=== PATIENT | female | born 1960 | race Caucasian/White ===

== ENCOUNTER 2016-05-22 11:42 | Emergency (ER) | payer OTHER ==
[2016-05-22 12:51] LABS: BASO # 0.1 K/mm3 (0.0-0.2); BASO % 2.4 % (0.0-1.0); EOS # 0.1 K/mm3 (0.0-0.50); EOS % 2.3 % (0.0-3.0); LARGE UNSTAINED CELL # 0.1 K/mm3 (0.0-0.4); LARGE UNSTAINED CELL % 1.2 % (0.0-4.0); LYMPH # 1.4 K/mm3 (1.5-4.5); LYMPH % 26.5 % (24.0-44.0); MEAN CORPUSCULAR HEMOGLOBIN 31.1 pg (27.0-33.0); MEAN CORPUSCULAR HGB CONC 33.8 g/dl (32.0-36.5); MONO # 0.1 K/mm3 (0.0-0.8); MONO % 2.8 % (0.0-5.0); NEUTROPHILS # 3.4 K/mm3 (1.8-7.7); NEUTROPHILS % 64.9 % (36.0-66.0); PLATELET COUNT, AUTOMATED 219 k/mm3 (150-450); RED CELL DISTRIBUTION WIDTH 12.9 % (11.5-14.5); WHITE BLOOD COUNT 5.2 K/mm3 (4.0-10.0)
[2016-05-22 13:10] LABS: ANION GAP 8 MEQ/L (8-16); BLOOD UREA NITROGEN 13 MG/DL (7-18); CARBON DIOXIDE LEVEL 31 MEQ/L (21-32); CHLORIDE LEVEL 105 MEQ/L (98-107); CREATININE FOR GFR 0.71 MG/DL (0.55-1.02); GLOMERULAR FILTRATION RATE > 60.0 (>51); GLUCOSE, FASTING 103 MG/DL (70-105); POTASSIUM SERUM 3.7 MEQ/L (3.5-5.1); SODIUM LEVEL 144 MEQ/L (136-145)
--- NOTE | 2016-05-22 13:41 | EDDOCDS ---
Physician Documentation [facility] Name: Lesley Nolen Age: 55 yrs Sex: Female : 1960 Arrival Date: 05/22/2016 Time: 11:42 Bed I3 / M3 Private MD: Gagan Cortez M.D. Disposition: 05/22/16 13:28 Discharged to Home/Self Care. Impression: Cough, Acute bronchospasm. - Condition is Stable. - Discharge Instructions: Bronchospasm, Adult, Cough, Adult, [id number]. - Prescriptions for Prednisone 20 mg Oral Tablet - take 2 tablet by ORAL route once daily for 5 days; 10 tablet. benzonatate 200 mg Oral Capsule - take 1 capsule by ORAL route 3 times per day As needed; 30 capsule. - Medication Reconciliation, Local Pharmacy Hours form. - Follow up: Emergency Department; When: As needed; Reason: Worsening of conditions. Follow up: Private Physician; When: 2 - 3 days; Reason: Wound/Symptom Recheck, Recheck today's complaints, Continuance of care. - Problem is new. - Symptoms are unchanged. Historical: - Allergies: Septra; - Home Meds: 1. pro air inhaler as needed 2. multivitamin Oral tab daily 3. calcium magnesium and zinc daily 4. Vitamin D Oral daily - PMHx: none; - PSHx: Appendectomy; Tonsillectomy; Adenoidectomy; Colonoscopy; - Social history: Smoking status: Patient states was never smoker of tobacco. No barriers to communication noted, The patient speaks fluent Turkmen, Speaks appropriately for age. - Family history: No immediate family members are acutely ill. - : The pt / caregiver states he / she is not on anticoagulants. Home medication list is obtained from the patient. - Exposure Risk Screening:: None identified. 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 5 in. (165.10 cm) (R); Pain 0/10; 12:32 BP 173 / 77 LA Sitting (man/reg); ct3 12:32 BP 179 / 87 LA Sitting (man/reg); ct3 13:39 BP 131 / 72; Pulse 76; Resp 17; Temp 98.2(TE); Pulse Ox 98% on R/A; mb9 11:43 Body Mass Index 26.63 (72.57 kg, 165.10 cm) elp MDM: 12:20 Recheck B/P ordered. dt4 12:20 IV Saline Lock ordered. dt4 12:20 ECG WITH READING ER PHYS+CARDIAG ordered. EDMS 12:20 CBC with Diff Ordered. EDMS 12:20 Basic Metabolic Profile Ordered. EDMS 12:20 D-Dimer Quant Ordered. EDMS 12:30 ED course: PT STATES BEGAN WITH A COUGH, RUNNY NOSE AND GENERAL "NOT FEELING WELL" IN dt4 MARCH. WAS PLACED ON ANTIBIOTICS AND STATES EVERYTHING RESOLVED EXCEPT THE COUGH. STATES TODAY, HAD 2 EPISODES WHERE SHE WAS COUGHING AND COULD NOT CATCH HER BREATH. WENT TO URGENT CARE AND THEY ASKED IF SHE HAD ANY CALF PAIN AND PT STATED SHE HAD A COUPLE EPISODES OF CALF PAIN LAST WEEK AND THEY SENT HER TO THE ER TO RULE OUT A PE. PT STATES HAS NO CALF PAIN CURRENTLY, NO RECENT LONG TRAVEL, NO HRT, NONSMOKER. POS FAMILY HISTORY FOR CVA, CAD, AN ANEURYSM. . 12:46 CARDIAC INJURY PROFILE Ordered. EDMS 12:46 TROPONIN Ordered. EDMS Signatures: Dispatcher [employer] EDLainey Greco,RN RN kr3 Eleni Donald, PAPaulC PAPaulC dt4 Ronaldo CruzRN RN mb9 The chart was reviewed and I authenticate all verbal orders and agree with the evaluation and treatment provided.Corrections: (The following items were deleted from the chart) 12:46 12:33 TROPONIN+LAB ordered. EDMS EDMS 12:46 12:33 CARDIAC INJURY PROFILE+LAB ordered. EDMS EDMS MTDD
--- NOTE | 2016-05-22 13:41 | EDDOCDS ---
Nurse's Notes [facility] Name: Lesley Nolen Age: 55 yrs Sex: Female : 1960 Arrival Date: 05/22/2016 Time: 11:42 Bed I3 / M3 Private MD: Gagan Cortez M.D. Diagnosis: Cough;Acute bronchospasm Presentation: 05/22 11:46 Presenting complaint: Patient states: had shortness of breath today with cough since kr3 March. Had antibiotics in March but cough continued. Uses inhaler. Sent to Ed to rule out PE. Adult Sepsis Screening: The patient does not have new or worsening altered mentation. Patient's respiratory rate is less than 22. Systolic blood pressure is greater than 100. Patient has a qSOFA score of 0- Negative Sepsis Screen. Suicide/Homicide risk assessment- the patient denies having any suicidal and/or homicidal ideations and does not present with any other emotional, behavioral or mental health complaints. Status: Patient is not a representative phlebotomy services or dependent. Transition of care: Patient was received from [facility]. 11:46 Acuity: DEVIN Level 3 kr3 11:46 Method Of Arrival: Walkin/Carried/Asstd kr3 Triage Assessment: 11:49 General: Appears in no apparent distress, comfortable, Behavior is cooperative. kr3 General: Reports anxiety since being seen at . Pain: Location: chest Pain currently is 3 out of 10 on a pain scale. Quality of pain is described as pressure, Pain began 30 min ago. Pt Declines HIV testing. Respiratory: Respiratory effort is even, unlabored, Reports cough that is productive, persistent. Derm: Skin is normal. CLINICAL DOCUMENTATION SPEC: 11:49 LMP N/A - Post-menopause kr3 Historical: - Allergies: Septra; - Home Meds: 1. pro air inhaler as needed 2. multivitamin Oral tab daily 3. calcium magnesium and zinc daily 4. Vitamin D Oral daily - PMHx: none; - PSHx: Appendectomy; Tonsillectomy; Adenoidectomy; Colonoscopy; - Social history: Smoking status: Patient states was never smoker of tobacco. No barriers to communication noted, The patient speaks fluent Belgian, Speaks appropriately for age. - Family history: No immediate family members are acutely ill. - : The pt / caregiver states he / she is not on anticoagulants. Home medication list is obtained from the patient. - Exposure Risk Screening:: None identified. Screenin:42 Screening information is obtained from the patient. Fall risk: No risks identified. mb9 Assistance ADL's: requires no assistance with activities of daily living. Abuse/DV Screen: The patient / caregiver reports he/she is: not in a situation that causes fear, pain or injury. Nutritional screening: No deficits noted. Advance Directives: There is no active DNR order. home support is adequate. Assessment: 12:42 General: Appears in no apparent distress, Behavior is appropriate for age, cooperative. mb9 Pain: Denies pain. Cardiovascular: No deficits noted. Respiratory: Airway is patent Respiratory effort is even, unlabored, Breath sounds are clear bilaterally. Reports cough that is non-productive, dry. 13:39 Reassessment: Patient appears in no apparent distress at this time. General: Appears in mb9 no apparent distress, Behavior is appropriate for age, cooperative. Respiratory: Airway is patent Respiratory effort is even, unlabored. Vital Signs: 11:43 BP 191 / 94; Pulse 105; Resp 20; Temp 98.2(O); Pulse Ox 100% on R/A; Weight 72.57 kg elp (R); Height 5 ft. 5 in. (165.10 cm) (R); Pain 0/10; 12:32 BP 173 / 77 LA Sitting (man/reg); ct3 12:32 BP 179 / 87 LA Sitting (man/reg); ct3 13:39 BP 131 / 72; Pulse 76; Resp 17; Temp 98.2(TE); Pulse Ox 98% on R/A; mb9 11:43 Body Mass Index 26.63 (72.57 kg, 165.10 cm) [facility] Vitals: 11:43 Log In Time: May 22, 2016 at 11:41. [facility] ED Course: 11:43 Patient visited by Loren Nevarez PCA. elp 11:43 Gagan Cortez is Private Physician. elp 11:43 Patient moved to Waiting elp 11:44 Patient visited by Loren Nevarez PCA. elp 11:45 Patient moved to Pre RCE elp 11:47 Triage Initiated kr3 11:59 Patient moved to Triage 1 js13 12:01 Eleni Donald PA-C is PHCP. dt4 12:01 Patrick Roper MD is Attending Physician. dt4 12:01 Patient visited by Eleni Donald PA-C. dt4 12:19 Mitra Johnston, RN is Primary Nurse. ml6 12:19 Patient moved to 3 / ml6 12:32 EKG done. (by ED staff). Reviewed by Eleni Donald PA-C. ct3 12:33 Patient visited by Pat Gonzalez PCA. ct3 12:42 The patient / caregiver is instructed regarding the plan of care and ED course. mb9 12:42 D-Dimer Quant Sent. mb9 12:42 Basic Metabolic Profile Sent. mb9 12:42 CBC with Diff Sent. mb9 12:42 Inserted saline lock: 18 gauge in right antecubital area and blood collected. The mb9 patient tolerated the procedure well. 12:47 CARDIAC INJURY PROFILE Sent. mb9 12:47 TROPONIN Sent. mb9 13:15 Patient visited by Pat Gonzalez PCA. ct3 13:39 Discontinued IV lock intact, bleeding controlled, pressure dressing applied, No mb9 redness/swelling at site. No procedures done that require assistance. Order Results: Lab Order: CBC with Diff; SPEC'M 05/22/16 12:38 Test: WHITE BLOOD COUNT; Value: 5.2; Range: 4.0-10.0; Units: K/mm3; Status: F Test: RED BLOOD COUNT; Value: 4.76; Range: 4.00-5.40; Units: M/mm3; Status: F Test: HEMOGLOBIN; Value: 14.8; Range: 12.0-16.0; Units: g/dl; Status: F Test: HEMATOCRIT; Value: 43.8; Range: 36.0-47.0; Units: %; Status: F Test: MEAN CORPUSCULAR VOLUME; Value: 92.0; Range: 80.0-96.0; Units: fl; Status: F Test: MEAN CORPUSCULAR HEMOGLOBIN; Value: 31.1; Range: 27.0-33.0; Units: pg; Status: F Test: MEAN CORPUSCULAR HGB CONC; Value: 33.8; Range: 32.0-36.5; Units: g/dl; Status: F Test: RED CELL DISTRIBUTION WIDTH; Value: 12.9; Range: 11.5-14.5; Units: %; Status: F Test: PLATELET COUNT, AUTOMATED; Value: 219; Range: 150-450; Units: k/mm3; Status: F Test: NEUTROPHILS %; Value: 64.9; Range: 36.0-66.0; Units: %; Status: F Test: LYMPH %; Value: 26.5; Range: 24.0-44.0; Units: %; Status: F Test: MONO %; Value: 2.8; Range: 0.0-5.0; Units: %; Status: F Test: EOS %; Value: 2.3; Range: 0.0-3.0; Units: %; Status: F Test: BASO %; Value: 2.4; Range: 0.0-1.0; Abnormal: Above high normal; Units: %; Status: F Test: LARGE UNSTAINED CELL %; Value: 1.2; Range: 0.0-4.0; Units: %; Status: F Test: NEUTROPHILS #; Value: 3.4; Range: 1.8-7.7; Units: K/mm3; Status: F Test: LYMPH #; Value: 1.4; Range: 1.5-4.5; Abnormal: Below low normal; Units: K/mm3; Status: F Test: MONO #; Value: 0.1; Range: 0.0-0.8; Units: K/mm3; Status: F Test: EOS #; Value: 0.1; Range: 0.0-0.50; Units: K/mm3; Status: F Test: BASO #; Value: 0.1; Range: 0.0-0.2; Units: K/mm3; Status: F Test: LARGE UNSTAINED CELL #; Value: 0.1; Range: 0.0-0.4; Units: K/mm3; Status: F Lab Order: Basic Metabolic Profile; SPEC'M 05/22/16 12:38 Test: GLUCOSE, FASTING; Value: 103; Range: 70-105; Units: MG/DL; Status: F Test: BLOOD UREA NITROGEN; Value: 13; Range: 7-18; Units: MG/DL; Status: F Test: CREATININE FOR GFR; Value: 0.71; Range: 0.55-1.02; Units: MG/DL; Status: F Test: GLOMERULAR FILTRATION RATE; Value: > 60.0; Range: >51; Status: F Test: SODIUM LEVEL; Value: 144; Range: 136-145; Units: MEQ/L; Status: F Test: POTASSIUM SERUM; Value: 3.7; Range: 3.5-5.1; Units: MEQ/L; Status: F Test: CHLORIDE LEVEL; Value: 105; Range: 98-107; Units: MEQ/L; Status: F Test: CARBON DIOXIDE LEVEL; Value: 31; Range: 21-32; Units: MEQ/L; Status: F Test: ANION GAP; Value: 8; Range: 8-16; Units: MEQ/L; Status: F Test: CALCIUM LEVEL; Value: 10.0; Range: 8.5-10.1; Units: MG/DL; Status: F Test Note: ; Units are mL/min/1.73 m2 Chronic Kidney Disease Staging per NKF: Stage I & II GFR >=60 Normal to Mildly Decreased Stage III GFR 30-59 Moderately Decreased Stage IV GFR 15-29 Severely Decreased Stage V GFR <15 Very Little GFR Left ESRD GFR <15 on INVERTEBRATE PALEONTOLOGIST Lab Order: D-Dimer Quant; SPEC'05/22/16 12:38 Test: D-DIMER QUANT; Value: 422.2; Range: <500; Units: ng/ml; Status: F Lab Order: CARDIAC INJURY PROFILE; SPEC'M 05/22/16 12:38 Test: CPK CREATINE PHOSPHOKINASE; Value: 125; Range: 26-192; Units: U/L; Status: F Test: CK-MB VALUE MASS; Value: 2.3; Range: 0.0-3.6; Units: NG/ML; Status: F Test: MB/CK RELATIVE INDEX; Value: 1.84; Range: < OR =4; Status: F Test Note: ; DIAGNOSIS CRITERIA MMB ng/ml Relative Index (RI) NON-AMI < or = 5 N/A WOODARD ZONE > 5 < or = 4 AMI > 5 > 4 Lab Order: TROPONIN; SPEC'M 05/22/16 12:38 Test: TROPONIN I; Value: < 0.02; Range: < 0.10; Units: NG/ML; Status: F Test Note: ; Troponin I Reference Interval for Siemens [employer] LOCI: 99th Percentile= 0.00-0.045 ng/ml Risk Stratification: <= 0.10 ng/ml Decreased Risk for Adverse Clinical Events. 0.10-1.50 ng/ml Increased Risk for Adverse Clinical Events. Evaluation of additional criterion and/or repeat testing in 2-6 hours is suggested to rule out myocardial damage. >= 1.50 ng/ml Indicative of Myocardial Injury. Outcome: 13:28 Discharge ordered by Provider. dt4 13:39 Discharge Assessment: Patient awake, alert and oriented x 3. No cognitive and/or mb9 functional deficits noted. Patient verbalized understanding of disposition instructions. patient administered narcotics - no. The following High Risk Discharge criteria are identified: None. Discharged to home ambulatory, with significant other. Condition: good Condition: stable Condition: improved. Discharge instructions given to patient, Instructed on discharge instructions, follow up and referral plans. medication usage, Demonstrated understanding of instructions, medications, Pt was receptive of discharge instructions/ teaching. No special radiology studies were completed. Property :Personal belongings accompany Pt. 13:41 Patient left the ED. mb9 Signatures: Lainey Warner,RN RN kr3 Jeremie Wilson, RN RN ml6 Pat Gonzalez, HAND SHOES SEWER HAND SHOES SEWER ct3 Radha Domínguez,RN RN js13 Loren Nevarez, HAND SHOES SEWER HAND SHOES SEWER elp Eleni Donald, PA-C PA-C dt4 Ronaldo Cruz,RN RN mb9 Corrections: (The following items were deleted from the chart) 12:46 12:42 CARDIAC INJURY PROFILE+LAB sent. mb9 EDMS 12:46 12:42 TROPONIN+LAB sent. mb9 EDMS MTDD
--- NOTE | 2016-05-22 19:15 | ECGEPIP ---
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
--- NOTE | 2016-05-24 14:42 | EDDOCDS ---
Physician Documentation [facility] Name: Lesley Nolen Age: 55 yrs Sex: Female : 1960 Arrival Date: 05/22/2016 Time: 11:42 Bed I3 / M3 Private MD: Gagan Cortez M.D. Disposition: 05/22/16 13:28 Discharged to Home/Self Care. Impression: Cough, Acute bronchospasm. - Condition is Stable. - Discharge Instructions: Bronchospasm, Adult, Cough, Adult, [id number]. - Prescriptions for Prednisone 20 mg Oral Tablet - take 2 tablet by ORAL route once daily for 5 days; 10 tablet. benzonatate 200 mg Oral Capsule - take 1 capsule by ORAL route 3 times per day As needed; 30 capsule. - Medication Reconciliation, Local Pharmacy Hours form. - Follow up: Emergency Department; When: As needed; Reason: Worsening of conditions. Follow up: Private Physician; When: 2 - 3 days; Reason: Wound/Symptom Recheck, Recheck today's complaints, Continuance of care. - Problem is new. - Symptoms are unchanged. Historical: - Allergies: Septra; - Home Meds: 1. pro air inhaler as needed 2. multivitamin Oral tab daily 3. calcium magnesium and zinc daily 4. Vitamin D Oral daily - PMHx: none; - PSHx: Appendectomy; Tonsillectomy; Adenoidectomy; Colonoscopy; - Social history: Smoking status: Patient states was never smoker of tobacco. No barriers to communication noted, The patient speaks fluent Kiswahili, Speaks appropriately for age. - Family history: No immediate family members are acutely ill. - : The pt / caregiver states he / she is not on anticoagulants. Home medication list is obtained from the patient. - Exposure Risk Screening:: None identified. 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 5 in. (165.10 cm) (R); Pain 0/10; 12:32 BP 173 / 77 LA Sitting (man/reg); ct3 12:32 BP 179 / 87 LA Sitting (man/reg); ct3 13:39 BP 131 / 72; Pulse 76; Resp 17; Temp 98.2(TE); Pulse Ox 98% on R/A; mb9 11:43 Body Mass Index 26.63 (72.57 kg, 165.10 cm) elp MDM: 12:20 Recheck B/P ordered. dt4 12:20 IV Saline Lock ordered. dt4 12:20 ECG WITH READING ER PHYS+CARDIAG ordered. EDMS 12:20 CBC with Diff Ordered. EDMS 12:20 Basic Metabolic Profile Ordered. EDMS 12:20 D-Dimer Quant Ordered. EDMS 12:30 ED course: PT STATES BEGAN WITH A COUGH, RUNNY NOSE AND GENERAL "NOT FEELING WELL" IN dt4 MARCH. WAS PLACED ON ANTIBIOTICS AND STATES EVERYTHING RESOLVED EXCEPT THE COUGH. STATES TODAY, HAD 2 EPISODES WHERE SHE WAS COUGHING AND COULD NOT CATCH HER BREATH. WENT TO URGENT CARE AND THEY ASKED IF SHE HAD ANY CALF PAIN AND PT STATED SHE HAD A COUPLE EPISODES OF CALF PAIN LAST WEEK AND THEY SENT HER TO THE ER TO RULE OUT A PE. PT STATES HAS NO CALF PAIN CURRENTLY, NO RECENT LONG TRAVEL, NO HRT, NONSMOKER. POS FAMILY HISTORY FOR CVA, CAD, AN ANEURYSM. . 12:46 CARDIAC INJURY PROFILE Ordered. EDMS 12:46 TROPONIN Ordered. [facility] 13:53 [facility] Payment Agreement was scanned into [employer] and attached to record. [facility] 13:53 Financial registration complete. [facility] 21:40 T-Sheet-- Draft Copy was scanned into [employer] and attached to record. klr 05/23 11:18 ECG/EKG was scanned into [employer] and attached to record. gb Signatures: Dispatcher [employer] EDAZ Barbara Eid, Reg Reg gb Lainey WarnerRN RN kr3 Eleni Donald PA-C PAKingsley dt4 Ronaldo CruzRN RN mb9 Ronaldo Gaston, Reg Reg mpb Lotus Back The chart was reviewed and I authenticate all verbal orders and agree with the evaluation and treatment provided.Corrections: (The following items were deleted from the chart) 05/22 12:46 12:33 TROPONIN+LAB ordered. EDMS EDMS 12:46 12:33 CARDIAC INJURY PROFILE+LAB ordered. EDMS EDMS Attachments: 13:53 [facility] Payment Agreement [facility]pb 21:40 T-Sheet-- Draft Copy klr 05/23 11:18 ECG/EKG gb Chart Complete MTDD
--- NOTE | 2016-05-24 14:42 | EDDOCDS ---
Physician Documentation [facility] Name: Lesley Nolen Age: 55 yrs Sex: Female : 1960 Arrival Date: 05/22/2016 Time: 11:42 Bed I3 / M3 Private MD: Gagan Cortez M.D. Disposition: 05/22/16 13:28 Discharged to Home/Self Care. Impression: Cough, Acute bronchospasm. - Condition is Stable. - Discharge Instructions: Bronchospasm, Adult, Cough, Adult, [id number]. - Prescriptions for Prednisone 20 mg Oral Tablet - take 2 tablet by ORAL route once daily for 5 days; 10 tablet. benzonatate 200 mg Oral Capsule - take 1 capsule by ORAL route 3 times per day As needed; 30 capsule. - Medication Reconciliation, Local Pharmacy Hours form. - Follow up: Emergency Department; When: As needed; Reason: Worsening of conditions. Follow up: Private Physician; When: 2 - 3 days; Reason: Wound/Symptom Recheck, Recheck today's complaints, Continuance of care. - Problem is new. - Symptoms are unchanged. Historical: - Allergies: Septra; - Home Meds: 1. pro air inhaler as needed 2. multivitamin Oral tab daily 3. calcium magnesium and zinc daily 4. Vitamin D Oral daily - PMHx: none; - PSHx: Appendectomy; Tonsillectomy; Adenoidectomy; Colonoscopy; - Social history: Smoking status: Patient states was never smoker of tobacco. No barriers to communication noted, The patient speaks fluent Bulgarian, Speaks appropriately for age. - Family history: No immediate family members are acutely ill. - : The pt / caregiver states he / she is not on anticoagulants. Home medication list is obtained from the patient. - Exposure Risk Screening:: None identified. 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 5 in. (165.10 cm) (R); Pain 0/10; 12:32 BP 173 / 77 LA Sitting (man/reg); ct3 12:32 BP 179 / 87 LA Sitting (man/reg); ct3 13:39 BP 131 / 72; Pulse 76; Resp 17; Temp 98.2(TE); Pulse Ox 98% on R/A; mb9 11:43 Body Mass Index 26.63 (72.57 kg, 165.10 cm) elp MDM: 12:20 Recheck B/P ordered. dt4 12:20 IV Saline Lock ordered. dt4 12:20 ECG WITH READING ER PHYS+CARDIAG ordered. EDMS 12:20 CBC with Diff Ordered. EDMS 12:20 Basic Metabolic Profile Ordered. EDMS 12:20 D-Dimer Quant Ordered. EDMS 12:30 ED course: PT STATES BEGAN WITH A COUGH, RUNNY NOSE AND GENERAL "NOT FEELING WELL" IN dt4 MARCH. WAS PLACED ON ANTIBIOTICS AND STATES EVERYTHING RESOLVED EXCEPT THE COUGH. STATES TODAY, HAD 2 EPISODES WHERE SHE WAS COUGHING AND COULD NOT CATCH HER BREATH. WENT TO URGENT CARE AND THEY ASKED IF SHE HAD ANY CALF PAIN AND PT STATED SHE HAD A COUPLE EPISODES OF CALF PAIN LAST WEEK AND THEY SENT HER TO THE ER TO RULE OUT A PE. PT STATES HAS NO CALF PAIN CURRENTLY, NO RECENT LONG TRAVEL, NO HRT, NONSMOKER. POS FAMILY HISTORY FOR CVA, CAD, AN ANEURYSM. . 12:46 CARDIAC INJURY PROFILE Ordered. EDMS 12:46 TROPONIN Ordered. [facility] 13:53 [facility] Payment Agreement was scanned into [employer] and attached to record. [facility] 13:53 Financial registration complete. [facility] 21:40 T-Sheet-- Draft Copy was scanned into [employer] and attached to record. klr 05/23 11:18 ECG/EKG was scanned into [employer] and attached to record. gb Signatures: Dispatcher [employer] EDSC Barbara Eid, Reg Reg gb Lainey WarnerRN RN kr3 Eleni Donald PA-C PAKingsley dt4 Ronaldo CruzRN RN mb9 Ronaldo Gaston, Reg Reg mpb Lotus Back The chart was reviewed and I authenticate all verbal orders and agree with the evaluation and treatment provided.Corrections: (The following items were deleted from the chart) 05/22 12:46 12:33 TROPONIN+LAB ordered. EDMS EDMS 12:46 12:33 CARDIAC INJURY PROFILE+LAB ordered. EDMS EDMS Attachments: 13:53 [facility] Payment Agreement [facility]pb 21:40 T-Sheet-- Draft Copy klr 05/23 11:18 ECG/EKG gb Chart Complete MTDD
--- NOTE | 2016-05-24 14:42 | EDDOCDS ---
Nurse's Notes [facility] Name: Lesley Nolen Age: 55 yrs Sex: Female : 1960 Arrival Date: 05/22/2016 Time: 11:42 Bed I3 / M3 Private MD: Gagan Cortez M.D. Diagnosis: Cough;Acute bronchospasm Presentation: 05/22 11:46 Presenting complaint: Patient states: had shortness of breath today with cough since kr3 March. Had antibiotics in March but cough continued. Uses inhaler. Sent to Ed to rule out PE. Adult Sepsis Screening: The patient does not have new or worsening altered mentation. Patient's respiratory rate is less than 22. Systolic blood pressure is greater than 100. Patient has a qSOFA score of 0- Negative Sepsis Screen. Suicide/Homicide risk assessment- the patient denies having any suicidal and/or homicidal ideations and does not present with any other emotional, behavioral or mental health complaints. Status: Patient is not a vehicle service agent or dependent. Transition of care: Patient was received from [facility]. 11:46 Acuity: DEVIN Level 3 kr3 11:46 Method Of Arrival: Walkin/Carried/Asstd kr3 Triage Assessment: 11:49 General: Appears in no apparent distress, comfortable, Behavior is cooperative. kr3 General: Reports anxiety since being seen at . Pain: Location: chest Pain currently is 3 out of 10 on a pain scale. Quality of pain is described as pressure, Pain began 30 min ago. Pt Declines HIV testing. Respiratory: Respiratory effort is even, unlabored, Reports cough that is productive, persistent. Derm: Skin is normal. 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 pro air inhaler as needed 2. multivitamin Oral tab daily 3. calcium magnesium and zinc daily 4. Vitamin D Oral daily - PMHx: none; - PSHx: Appendectomy; Tonsillectomy; Adenoidectomy; Colonoscopy; - Social history: Smoking status: Patient states was never smoker of tobacco. No barriers to communication noted, The patient speaks fluent Canadian, Speaks appropriately for age. - Family history: No immediate family members are acutely ill. - : The pt / caregiver states he / she is not on anticoagulants. Home medication list is obtained from the patient. - Exposure Risk Screening:: None identified. Screenin:42 Screening information is obtained from the patient. Fall risk: No risks identified. mb9 Assistance ADL's: requires no assistance with activities of daily living. Abuse/DV Screen: The patient / caregiver reports he/she is: not in a situation that causes fear, pain or injury. Nutritional screening: No deficits noted. Advance Directives: There is no active DNR order. home support is adequate. Assessment: 12:42 General: Appears in no apparent distress, Behavior is appropriate for age, cooperative. mb9 Pain: Denies pain. Cardiovascular: No deficits noted. Respiratory: Airway is patent Respiratory effort is even, unlabored, Breath sounds are clear bilaterally. Reports cough that is non-productive, dry. 13:39 Reassessment: Patient appears in no apparent distress at this time. General: Appears in mb9 no apparent distress, Behavior is appropriate for age, cooperative. Respiratory: Airway is patent Respiratory effort is even, unlabored. Vital Signs: 11:43 BP 191 / 94; Pulse 105; Resp 20; Temp 98.2(O); Pulse Ox 100% on R/A; Weight 72.57 kg elp (R); Height 5 ft. 5 in. (165.10 cm) (R); Pain 0/10; 12:32 BP 173 / 77 LA Sitting (man/reg); ct3 12:32 BP 179 / 87 LA Sitting (man/reg); ct3 13:39 BP 131 / 72; Pulse 76; Resp 17; Temp 98.2(TE); Pulse Ox 98% on R/A; mb9 11:43 Body Mass Index 26.63 (72.57 kg, 165.10 cm) [facility] Vitals: 11:43 Log In Time: May 22, 2016 at 11:41. [facility] ED Course: 11:43 Patient visited by Loren Nevarez PCA. elp 11:43 Gagan Cortez is Private Physician. elp 11:43 Patient moved to Waiting elp 11:44 Patient visited by Loren Nevarez PCA. elp 11:45 Patient moved to Pre RCE elp 11:47 Triage Initiated kr3 11:59 Patient moved to Triage 1 js13 12:01 Eleni Donald PA-C is PHCP. dt4 12:01 Patrick Roper MD is Attending Physician. dt4 12:01 Patient visited by Eleni Donald PA-C. dt4 12:19 Mitra Johnston, RN is Primary Nurse. ml6 12:19 Patient moved to I3 / ml6 12:32 EKG done. (by ED staff). Reviewed by Eleni Donald PA-C. ct3 12:33 Patient visited by Pat Gonzalez PCA. ct3 12:42 The patient / caregiver is instructed regarding the plan of care and ED course. mb9 12:42 D-Dimer Quant Sent. mb9 12:42 Basic Metabolic Profile Sent. mb9 12:42 CBC with Diff Sent. mb9 12:42 Inserted saline lock: 18 gauge in right antecubital area and blood collected. The mb9 patient tolerated the procedure well. 12:47 CARDIAC INJURY PROFILE Sent. mb9 12:47 TROPONIN Sent. mb9 13:15 Patient visited by Pat Gonzalez PCA. ct3 13:39 Discontinued IV lock intact, bleeding controlled, pressure dressing applied, No mb9 redness/swelling at site. No procedures done that require assistance. 13:53 [facility] [place] Agreement was scanned into [employer] and attached to record. mpb 19:48 EKG-ADULT Returned. EDMS 21:40 T-Sheet-- Draft Copy was scanned into [employer] and attached to record. klr 05/23 11:18 ECG/EKG was scanned into [employer] and attached to record. gb Order Results: Lab Order: CBC with Diff; SPEC'M 05/22/16 12:38 Test: WHITE BLOOD COUNT; Value: 5.2; Range: 4.0-10.0; Units: K/mm3; Status: F Test: RED BLOOD COUNT; Value: 4.76; Range: 4.00-5.40; Units: M/mm3; Status: F Test: HEMOGLOBIN; Value: 14.8; Range: 12.0-16.0; Units: g/dl; Status: F Test: HEMATOCRIT; Value: 43.8; Range: 36.0-47.0; Units: %; Status: F Test: MEAN CORPUSCULAR VOLUME; Value: 92.0; Range: 80.0-96.0; Units: fl; Status: F Test: MEAN CORPUSCULAR HEMOGLOBIN; Value: 31.1; Range: 27.0-33.0; Units: pg; Status: F Test: MEAN CORPUSCULAR HGB CONC; Value: 33.8; Range: 32.0-36.5; Units: g/dl; Status: F Test: RED CELL DISTRIBUTION WIDTH; Value: 12.9; Range: 11.5-14.5; Units: %; Status: F Test: PLATELET COUNT, AUTOMATED; Value: 219; Range: 150-450; Units: k/mm3; Status: F Test: NEUTROPHILS %; Value: 64.9; Range: 36.0-66.0; Units: %; Status: F Test: LYMPH %; Value: 26.5; Range: 24.0-44.0; Units: %; Status: F Test: MONO %; Value: 2.8; Range: 0.0-5.0; Units: %; Status: F Test: EOS %; Value: 2.3; Range: 0.0-3.0; Units: %; Status: F Test: BASO %; Value: 2.4; Range: 0.0-1.0; Abnormal: Above high normal; Units: %; Status: F Test: LARGE UNSTAINED CELL %; Value: 1.2; Range: 0.0-4.0; Units: %; Status: F Test: NEUTROPHILS #; Value: 3.4; Range: 1.8-7.7; Units: K/mm3; Status: F Test: LYMPH #; Value: 1.4; Range: 1.5-4.5; Abnormal: Below low normal; Units: K/mm3; Status: F Test: MONO #; Value: 0.1; Range: 0.0-0.8; Units: K/mm3; Status: F Test: EOS #; Value: 0.1; Range: 0.0-0.50; Units: K/mm3; Status: F Test: BASO #; Value: 0.1; Range: 0.0-0.2; Units: K/mm3; Status: F Test: LARGE UNSTAINED CELL #; Value: 0.1; Range: 0.0-0.4; Units: K/mm3; Status: F Lab Order: Basic Metabolic Profile; SPEC'M 05/22/16 12:38 Test: GLUCOSE, FASTING; Value: 103; Range: 70-105; Units: MG/DL; Status: F Test: BLOOD UREA NITROGEN; Value: 13; Range: 7-18; Units: MG/DL; Status: F Test: CREATININE FOR GFR; Value: 0.71; Range: 0.55-1.02; Units: MG/DL; Status: F Test: GLOMERULAR FILTRATION RATE; Value: > 60.0; Range: >51; Status: F Test: SODIUM LEVEL; Value: 144; Range: 136-145; Units: MEQ/L; Status: F Test: POTASSIUM SERUM; Value: 3.7; Range: 3.5-5.1; Units: MEQ/L; Status: F Test: CHLORIDE LEVEL; Value: 105; Range: 98-107; Units: MEQ/L; Status: F Test: CARBON DIOXIDE LEVEL; Value: 31; Range: 21-32; Units: MEQ/L; Status: F Test: ANION GAP; Value: 8; Range: 8-16; Units: MEQ/L; Status: F Test: CALCIUM LEVEL; Value: 10.0; Range: 8.5-10.1; Units: MG/DL; Status: F Test Note: ; Units are mL/min/1.73 m2 Chronic Kidney Disease Staging per NKF: Stage I & II GFR >=60 Normal to Mildly Decreased Stage III GFR 30-59 Moderately Decreased Stage IV GFR 15-29 Severely Decreased Stage V GFR <15 Very Little GFR Left ESRD GFR <15 on ADVERTISING STATISTICAL CLERK Lab Order: D-Dimer Quant; SPEC'M 05/22/16 12:38 Test: D-DIMER QUANT; Value: 422.2; Range: <500; Units: ng/ml; Status: F Lab Order: CARDIAC INJURY PROFILE; SPEC'M 05/22/16 12:38 Test: CPK CREATINE PHOSPHOKINASE; Value: 125; Range: 26-192; Units: U/L; Status: F Test: CK-MB VALUE MASS; Value: 2.3; Range: 0.0-3.6; Units: NG/ML; Status: F Test: MB/CK RELATIVE INDEX; Value: 1.84; Range: < OR =4; Status: F Test Note: ; DIAGNOSIS CRITERIA MMB ng/ml Relative Index (RI) NON-AMI < or = 5 N/A [place]ONE > 5 < or = 4 AMI > 5 > 4 Lab Order: TROPONIN; ANA MARIA 05/22/16 12:38 Test: TROPONIN I; Value: < 0.02; Range: < 0.10; Units: NG/ML; Status: F Test Note: ; Troponin I Reference Interval for Siemens Melboss LOCI: 99th Percentile= 0.00-0.045 ng/ml Risk Stratification: <= 0.10 ng/ml Decreased Risk for Adverse Clinical Events. 0.10-1.50 ng/ml Increased Risk for Adverse Clinical Events. Evaluation of additional criterion and/or repeat testing in 2-6 hours is suggested to rule out myocardial damage. >= 1.50 ng/ml Indicative of Myocardial Injury. 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 dt4 13:39 Discharge Assessment: Patient awake, alert and oriented x 3. No cognitive and/or mb9 functional deficits noted. Patient verbalized understanding of disposition instructions. patient administered narcotics - no. The following High Risk Discharge criteria are identified: None. Discharged to home ambulatory, with significant other. Condition: good Condition: stable Condition: improved. Discharge instructions given to patient, Instructed on discharge instructions, follow up and referral plans. medication usage, Demonstrated understanding of instructions, medications, Pt was receptive of discharge instructions/ teaching. No special radiology studies were completed. Property :Personal belongings accompany Pt. 13:41 Patient left the ED. [facility] Signatures: Dispatcher [employer] EDMS Barbara Eid, Reg Reg gb Lainey Warner,RN RN kr3 Jeremie Wilson, RN RN ml6 Gonzalez, Pat, ASSISTANT OPERATOR ASSISTANT OPERATOR ct3 Radha Domínguez,RN RN js13 Roque, Loren, ASSISTANT OPERATOR ASSISTANT OPERATOR elp Eleni Donald, PAPaulC PAPaulC dt4 Ronaldo Cruz RN RN mb9 Ronaldo Gaston, Reg Reg mpb Lotus Back Corrections: (The following items were deleted from the chart) 12:46 12:42 CARDIAC INJURY PROFILE+LAB sent. [facility] EDIL 12:46 12:42 TROPONIN+LAB sent. [address] Chart Complete MTDD
== END 2016-05-22 13:41 | disposition home or self-care (01) ==
LOC: M ED 11:42
DX: R05 Cough (principal); J98.01 Acute bronchospasm; Z79.51 Long term (current) use of inhaled steroids; Z79.899 Other long term (current) drug therapy; Z88.1 Allergy status to other antibiotic agents

== ENCOUNTER 2016-05-24 17:02 | Emergency (ER) | payer OTHER ==
[2016-05-24] MEDS ORDERED: IPRATROPIUM 0.5MG/ALBUTEROL 2.5MG INH SOL UD 3ML (DUONEB)(J7620) As Ordered ONE (17:53)
[2016-05-24] MEDS ORDERED: ALBUTEROL SULFATE 2.5 MG/0.5 ML INH NEB SOLN As Ordered ONE (17:53)
[2016-05-24] MEDS ORDERED: methylPREDNISolone INJ 125 MG/2 ML VIAL (J2930) As Ordered ONE (18:12)
[2016-05-24 18:24] LABS: MEAN CORPUSCULAR HEMOGLOBIN 31.5 pg (27.0-33.0); MEAN CORPUSCULAR HGB CONC 34.3 g/dl (32.0-36.5); MEAN CORPUSCULAR VOLUME 91.6 fl (80.0-96.0); RED CELL DISTRIBUTION WIDTH 11.8 % (11.5-14.5)
[2016-05-24 18:43] LABS: ANION GAP 8 MEQ/L (8-16); BLOOD UREA NITROGEN 15 MG/DL (7-18); CALCIUM LEVEL 9.6 MG/DL (8.5-10.1); CARBON DIOXIDE LEVEL 29 MEQ/L (21-32); CHLORIDE LEVEL 106 MEQ/L (98-107); CREATININE FOR GFR 0.92 MG/DL (0.55-1.02); GLOMERULAR FILTRATION RATE > 60.0 (>51); GLUCOSE, FASTING 105 MG/DL (70-105); POTASSIUM SERUM 3.8 MEQ/L (3.5-5.1); SODIUM LEVEL 143 MEQ/L (136-145)
[2016-05-24] MEDS ORDERED: ISOVUE-370 76% 100ML VIAL (Q9967) As Ordered ONE (18:44)
--- NOTE | 2016-05-24 19:13 | REP ---
Clinical: Acute chest pain and shortness of breath. Technique: Axial contrast enhanced images from the thoracic inlet to the upper abdomen using 100 ml Isovue 370 intravenous contrast material with coronal and sagittal re-formations. Findings: Satisfactory enhancement of the pulmonary vasculature is achieved and no filling defects are identified to suggest pulmonary embolus. Thoracic aorta is normal caliber without aneurysm or dissection. Heart and pericardium are normal. Bilateral lung claros are well aerated and clear without acute pulmonary parenchymal consolidation or atelectasis. No nodule or mass lesion. No pleural effusion/reaction. No pneumothorax. No adenopathy. Impression: No evidence for pulmonary embolus. No acute pleuroparenchymal or mediastinal process. Signed by Dieudonne Lowry MD 05/24/2016 07:05 P
--- NOTE | 2016-05-24 19:21 | EDDOCDS ---
Physician Documentation [facility] Name: Lesley Nolen Age: 55 yrs Sex: Female : 1960 Arrival Date: 05/24/2016 Time: 17:02 Bed I2 / M2 Private MD: Gagan Cortez M.D. Disposition: 05/24/16 19:11 Discharged to Home/Self Care. Impression: Acute bronchospasm. - Condition is Stable. - Discharge Instructions: Bronchospasm, Adult, How to Use an Inhaler. - Medication Reconciliation, Local Pharmacy Hours form. - Follow up: Gagan Cortez; When: 1 - 2 days; Reason: Recheck today's complaints, Continuance of care. - Problem is an acute exacerbation. - Symptoms have improved. Historical: - Allergies: Septra; - Home Meds: 1. calcium magnesium and zinc daily 2. multivitamin Oral tab daily 3. pro air inhaler as needed 4. Vitamin D Oral daily 5. prednisone 20 mg Oral tab 2 tabs once daily 6. benzonatate 200 mg oral cap 1 cap 3 times per day 7. loratadine 10 mg Oral tab once daily - PMHx: LBBB; - PSHx: Appendectomy; Tonsillectomy; Adenoidectomy; Colonoscopy; - Social history: Smoking status: Patient states former smoker of tobacco. No barriers to communication noted, The patient speaks fluent Icelandic, Speaks appropriately for age. - Family history: Not pertinent. - : The pt / caregiver states he / she is not on anticoagulants. Home medication list is obtained from the patient. - Exposure Risk Screening:: None identified. 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 5 in. (165.10 cm) (R); 19:15 BP 155 / 76; Pulse 88; Resp 20; Temp 98.5(O); Pulse Ox 100% on R/A; Pain 0/10; jmb 17:03 Body Mass Index 26.63 (72.57 kg, 165.10 cm) dd6 MDM: 17:39 IV Saline Lock ordered. ke 17:39 Solu-MEDROL 125 mg IVP once ordered. ke 17:39 NS 0.9% 1000 ml IV at 250 mL/hr continuous ordered. ke 17:39 Albuterol 5 mg Nebulizer once ordered. ke 17:39 Albuterol-Ipratropium 3 ml Inhalation once ordered. ke 17:39 Call Respiratory ordered. ke 17:40 CT Chest Angio R/O PE Ordered. EDMS 17:40 CBC Ordered. EDMS 17:40 BMP Ordered. EDMS 17:44 Financial registration complete. jpb 17:44 [facility] Payment Agreement was scanned into [employer] [place] and attached to record. jpb 17:49 Call Respiratory complete. jam1 19:06 CBC Reviewed. ke 19:06 BMP Reviewed. ke Administered Medications: 17:52 Drug: Albuterol 5 mg [albuterol sulfate 2.5 mg/0.5 mL solution for nebulization (1 mL)] rs5 Route: Nebulizer; 17:52 Drug: Albuterol-Ipratropium 3 ml [ipratropium-albuterol 0.5 mg-3 mg(2.5 mg base)/3 mL rs5 nebulization soln (3 mL)] Route: Inhalation; 18:25 Drug: Solu-MEDROL 125 mg [Solu-Medrol 500 mg intravenous solution (125 mg)] Route: IVP; tm5 Site: left antecubital; 18:25 Drug: NS 0.9% 1000 ml [sodium chloride 0.9 % intravenous solution] Route: IV; Rate: 250 tm5 mL/hr; Site: left antecubital; Signatures: Dispatcher [employer] EDMS Gilma Egan, TOWEL CABINET REPAIRER TOWEL CABINET REPAIRER jam1 Poli Scott, CUSTODIAL AIDE CUSTODIAL AIDE Min Cerna JoshuaRN RN Xiomara Mario,BOLIVAR RN debra3 Destin Guajardo RT rs5 Hafsa Salas RN tm5 The chart was reviewed and I authenticate all verbal orders and agree with the evaluation and treatment provided.Attachments: 17:44 [facility] Payment Agreement [facility] MTDD
--- NOTE | 2016-05-24 19:21 | EDDOCDS ---
Nurse's Notes [facility] Name: Lesley Nolen Age: 55 yrs Sex: Female : 1960 Arrival Date: 05/24/2016 Time: 17:02 Bed I2 / M2 Private MD: Gagan Cortez M.D. 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 Pt reports no relief with inhaler use. Adult Sepsis Screening: The patient does not have new or worsening altered mentation. Patient's respiratory rate is less than 22. Systolic blood pressure is greater than 100. Patient has a qSOFA score of 0- Negative Sepsis Screen. Suicide/Homicide risk assessment- the patient denies having any suicidal and/or homicidal ideations and does not present with any other emotional, behavioral or mental health complaints. Status: Patient is not a account services associate or dependent. Transition of care: patient was not received from another setting of care. 17:06 Acuity: DEVIN Level 3 kc3 17:06 Method Of Arrival: Walkin/Carried/Asstd kc3 Triage Assessment: 17:11 General: Appears in no apparent distress, comfortable, Behavior is appropriate for age, kc3 cooperative. Pain: Denies pain. HIV screening NA for this visit Offered previously. Neurological: Level of Consciousness is awake, alert, obeys commands, Oriented to person, place, time. Respiratory: Onset: The symptoms/episode began/occurred just prior to arrival, Respiratory effort is even, unlabored, Respiratory pattern is regular, symmetrical, Reports shortness of breath with cough. Derm: Skin is pink, warm & dry. 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 calcium magnesium and zinc daily 2. multivitamin Oral tab daily 3. pro air inhaler as needed 4. Vitamin D Oral daily 5. prednisone 20 mg Oral tab 2 tabs once daily 6. benzonatate 200 mg oral cap 1 cap 3 times per day 7. loratadine 10 mg Oral tab once daily - PMHx: LBBB; - PSHx: Appendectomy; Tonsillectomy; Adenoidectomy; Colonoscopy; - Social history: Smoking status: Patient states former smoker of tobacco. No barriers to communication noted, The patient speaks fluent Moroccan, Speaks appropriately for age. - Family history: Not pertinent. - : The pt / caregiver states he / she is not on anticoagulants. Home medication list is obtained from the patient. - Exposure Risk Screening:: None identified. Screenin:15 Screening information is obtained from the patient. Fall risk: No risks identified. jmb Assistance ADL's: requires no assistance with activities of daily living. Abuse/DV Screen: The patient / caregiver reports he/she is: not in a situation that causes fear, pain or injury. Nutritional screening: No deficits noted. home support is adequate. 19:15 Advance Directives: Currently, there is no health care proxy. There is no active DNR jmb order. There is no living will. There is no Power of Systems Management Consultant. Assessment: 18:15 General: Appears in no apparent distress, Behavior is appropriate for age, cooperative. jmb Pain: Denies pain. Neurological: Level of Consciousness is awake, alert, obeys commands, Oriented to person, place, time, Speech is normal, Facial symmetry appears normal, Facial symmetry: tongue is midline. Cardiovascular: Capillary refill < 3 seconds Heart tones present Pulses are all present. Rhythm is regular. Respiratory: Airway is patent Respiratory effort is even, unlabored, Respiratory pattern is regular, symmetrical, Breath sounds are clear bilaterally. GI: Abdomen is non- distended Bowel sounds present X 4 quads. Abd is soft X 4 quads. Derm: Skin is pink, warm & dry. Musculoskeletal: Range of motion intact in all extremities. 18:57 General: Appears in no apparent distress, comfortable, Behavior is appropriate for age, jmb cooperative, Patient returned from CT. Patient continues with jitteryness since solumedrol and duoneb. NO other complaints voiced at this time. . Neurological: Level of Consciousness is awake, alert, obeys commands, Oriented to person, place, time, Speech is normal, Facial symmetry appears normal, Facial symmetry: tongue is midline. Respiratory: Airway is patent Respiratory effort is even, unlabored, Respiratory pattern is regular, symmetrical. 19:15 General: Patient instructed on discharge instructions. Patient asked if there were any jmb questions regarding discharge, patient stated no. IV discontinued per hospital policy. Patient signed discharge instructions. Patient discharged in stable condition.. Vital Signs: 17:03 BP 173 / 88; Pulse 120; Resp 18 S; Temp 98.7(O); Pulse Ox 100% on R/A; Weight 72.57 kg dd6 (R); Height 5 ft. 5 in. (165.10 cm) (R); 19:15 BP 155 / 76; Pulse 88; Resp 20; Temp 98.5(O); Pulse Ox 100% on R/A; Pain 0/10; jmb 17:03 Body Mass Index 26.63 (72.57 kg, 165.10 cm) dd6 Vitals: 17:03 Log In Time: May 24, 2016 at 17:01. dd6 ED Course: 17:03 Patient visited by Darnell Epps PCA. dd6 17:03 Gagan Cortez is Private Physician. dd6 17:03 Patient moved to Waiting dd6 17:04 Patient moved to Pre RCE dd6 17:08 Triage Initiated kc3 17:12 Patient moved to Triage 1 kc3 17:32 [facility] F[facility] ke 17:32 Patient visited by Poli Scott FNP. ke 17:32 Patient visited by Poli Scott FNP. ke 17:44 Patient moved to I2 / M2 dwg 17:44 [facility] Payment Agreement was scanned into [employer] and attached to record. elia 18:03 Patient visited by Poli Scott FNP. ke 18:15 The patient / caregiver is instructed regarding the plan of care and ED course. carmelina 18:15 BMP Sent. carmelina 18:15 CBC Sent. carmelina 18:15 Inserted saline lock: 20 gauge in left antecubital area and blood collected. The [facility] patient tolerated the procedure well. Labs drawn. (by ED staff). Sent per order to lab. 18:16 Patient visited by Steve Valencia,BOLIVAR. carmelina 18:24 Patient visited by Hafsa Salas,BOLIVAR. tm5 18:58 Patient visited by Steve Valencia,BOLIVAR. jmb 19:11 Gagan Cortez is Referral Physician. ke 19:15 Discontinued lock intact, bleeding controlled, pressure dressing applied, No carmelina redness/swelling at site. No procedures done that require assistance. Administered Medications: 17:52 Drug: Albuterol 5 mg [albuterol sulfate 2.5 mg/0.5 mL solution for nebulization (1 mL)] rs5 Route: Nebulizer; 17:52 Drug: Albuterol-Ipratropium 3 ml [ipratropium-albuterol 0.5 mg-3 mg(2.5 mg base)/3 mL rs5 nebulization soln (3 mL)] Route: Inhalation; 18:25 Drug: Solu-MEDROL 125 mg [Solu-Medrol 500 mg intravenous solution (125 mg)] Route: IVP; tm5 Site: left antecubital; 18:25 Drug: NS 0.9% 1000 ml [sodium chloride 0.9 % intravenous solution] Route: IV; Rate: 250 tm5 mL/hr; Site: left antecubital; RT: 18:00 Initial Med Neb Given as ordered Patient was instructed and evaluated on procedure rs5 Patient tolerated procedure well without adverse effect. Respiratory: Respiratory effort is even, unlabored, Respiratory pattern is regular symmetrical, Breath sounds are clear bilaterally. Reports cough that is non-productive Denies pain with respiration, pain with cough. Order Results: Lab Order: CBC; SPEC'M 05/24/16 18:11 Test: WHITE BLOOD COUNT; Value: 7.0; Range: 4.0-10.0; Units: K/mm3; Status: F Test: RED BLOOD COUNT; Value: 4.60; Range: 4.00-5.40; Units: M/mm3; Status: F Test: HEMOGLOBIN; Value: 14.5; Range: 12.0-16.0; Units: g/dl; Status: F Test: HEMATOCRIT; Value: 42.1; Range: 36.0-47.0; Units: %; Status: F Test: MEAN CORPUSCULAR VOLUME; Value: 91.6; Range: 80.0-96.0; Units: fl; Status: F Test: MEAN CORPUSCULAR HEMOGLOBIN; Value: 31.5; Range: 27.0-33.0; Units: pg; Status: F Test: MEAN CORPUSCULAR HGB CONC; Value: 34.3; Range: 32.0-36.5; Units: g/dl; Status: F Test: RED CELL DISTRIBUTION WIDTH; Value: 11.8; Range: 11.5-14.5; Units: %; Status: F Test: PLATELET COUNT, AUTOMATED; Value: 261; Range: 150-450; Units: k/mm3; Status: F Lab Order: JULIANA RODGERS 05/24/16 18:11 Test: GLUCOSE, FASTING; Value: 105; Range: 70-105; Units: MG/DL; Status: F Test: BLOOD UREA NITROGEN; Value: 15; Range: 7-18; Units: MG/DL; Status: F Test: CREATININE FOR GFR; Value: 0.92; Range: 0.55-1.02; Units: MG/DL; Status: F Test: GLOMERULAR FILTRATION RATE; Value: > 60.0; Range: >51; Status: F Test: SODIUM LEVEL; Value: 143; Range: 136-145; Units: MEQ/L; Status: F Test: POTASSIUM SERUM; Value: 3.8; Range: 3.5-5.1; Units: MEQ/L; Status: F Test: CHLORIDE LEVEL; Value: 106; Range: 98-107; Units: MEQ/L; Status: F Test: CARBON DIOXIDE LEVEL; Value: 29; Range: 21-32; Units: MEQ/L; Status: F Test: ANION GAP; Value: 8; Range: 8-16; Units: MEQ/L; Status: F Test: CALCIUM LEVEL; Value: 9.6; Range: 8.5-10.1; Units: MG/DL; Status: F Test Note: ; Units are mL/min/1.73 m2 Chronic Kidney Disease Staging per NKF: Stage I & II GFR >=60 Normal to Mildly Decreased Stage III GFR 30-59 Moderately Decreased Stage IV GFR 15-29 Severely Decreased Stage V GFR <15 Very Little GFR Left ESRD GFR <15 on PLASTER PATTERNMAKER Outcome: 19:11 Discharge ordered by Provider. 19:15 Discharge Assessment: Patient awake, alert and oriented x 3. No cognitive and/or jmb functional deficits noted. Patient verbalized understanding of disposition instructions. Patient awake and alert. obeys commands, Oriented to person, place and time. Patient verbalized understanding of disposition instructions. Patient has no functional deficits. patient administered narcotics - no. The following High Risk Discharge criteria are identified: None. Discharged to home ambulatory, with significant other. Condition: stable. Discharge instructions given to patient, Instructed on discharge instructions, follow up and referral plans. Demonstrated understanding of instructions, Pt was receptive of discharge instructions/ teaching. CT Study completed. Property sent home with patient. 19:21 Patient left the ED. carmelina Signatures: Tyler Beltran, RN RN grazynag Poli Scott, JUDE SENIOR CORPORATE RECRUITER Darnell Cates, JEWEL DIAMETER GAUGER JEWEL DIAMETER GAUGER dd6 Destin Guajardo,RT RT rs5 Mni Doty JoshuaRN RN Xiomara Mario,RN RN kc3 Hafsa Salas,RN RN tm5 MTDD
--- NOTE | 2016-05-26 20:22 | EDDOCDS ---
Nurse's Notes [facility] Name: Lesley Nolen Age: 55 yrs Sex: Female : 1960 Arrival Date: 05/24/2016 Time: 17:02 Bed I2 / M2 Private MD: Gagan Cortez M.D. 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 Pt reports no relief with inhaler use. Adult Sepsis Screening: The patient does not have new or worsening altered mentation. Patient's respiratory rate is less than 22. Systolic blood pressure is greater than 100. Patient has a qSOFA score of 0- Negative Sepsis Screen. Suicide/Homicide risk assessment- the patient denies having any suicidal and/or homicidal ideations and does not present with any other emotional, behavioral or mental health complaints. 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 Transition of care: patient was not received from another setting of care. 17:06 Acuity: DEVIN Level 3 kc3 17:06 Method Of Arrival: Walkin/Carried/Asstd kc3 Triage Assessment: 17:11 General: Appears in no apparent distress, comfortable, Behavior is appropriate for age, kc3 cooperative. Pain: Denies pain. HIV screening NA for this visit Offered previously. Neurological: Level of Consciousness is awake, alert, obeys commands, Oriented to person, place, time. Respiratory: Onset: The symptoms/episode began/occurred just prior to arrival, Respiratory effort is even, unlabored, Respiratory pattern is regular, symmetrical, Reports shortness of breath with cough. Derm: Skin is pink, warm & dry. 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 calcium magnesium and zinc daily 2. multivitamin Oral tab daily 3. pro air inhaler as needed 4. Vitamin D Oral daily 5. prednisone 20 mg Oral tab 2 tabs once daily 6. benzonatate 200 mg oral cap 1 cap 3 times per day 7. loratadine 10 mg Oral tab once daily - PMHx: LBBB; - PSHx: Appendectomy; Tonsillectomy; Adenoidectomy; Colonoscopy; - Social history: Smoking status: Patient states former smoker of tobacco. No barriers to communication noted, The patient speaks fluent Palestinian, Speaks appropriately for age. - Family history: Not pertinent. - : The pt / caregiver states he / she is not on anticoagulants. Home medication list is obtained from the patient. - Exposure Risk Screening:: None identified. Screenin:15 Screening information is obtained from the patient. Fall risk: No risks identified. jmb Assistance ADL's: requires no assistance with activities of daily living. Abuse/DV Screen: The patient / caregiver reports he/she is: not in a situation that causes fear, pain or injury. Nutritional screening: No deficits noted. home support is adequate. 19:15 Advance Directives: Currently, there is no health care proxy. There is no active DNR jmb order. There is no living will. There is no Power of Trimmer Climber. Assessment: 18:15 General: Appears in no apparent distress, Behavior is appropriate for age, cooperative. jmb Pain: Denies pain. Neurological: Level of Consciousness is awake, alert, obeys commands, Oriented to person, place, time, Speech is normal, Facial symmetry appears normal, Facial symmetry: tongue is midline. Cardiovascular: Capillary refill < 3 seconds Heart tones present Pulses are all present. Rhythm is regular. Respiratory: Airway is patent Respiratory effort is even, unlabored, Respiratory pattern is regular, symmetrical, Breath sounds are clear bilaterally. GI: Abdomen is non- distended Bowel sounds present X 4 quads. Abd is soft X 4 quads. Derm: Skin is pink, warm & dry. Musculoskeletal: Range of motion intact in all extremities. 18:57 General: Appears in no apparent distress, comfortable, Behavior is appropriate for age, jmb cooperative, Patient returned from CT. Patient continues with jitteryness since solumedrol and duoneb. NO other complaints voiced at this time. . Neurological: Level of Consciousness is awake, alert, obeys commands, Oriented to person, place, time, Speech is normal, Facial symmetry appears normal, Facial symmetry: tongue is midline. Respiratory: Airway is patent Respiratory effort is even, unlabored, Respiratory pattern is regular, symmetrical. 19:15 General: Patient instructed on discharge instructions. Patient asked if there were any jmb questions regarding discharge, patient stated no. IV discontinued per hospital policy. Patient signed discharge instructions. Patient discharged in stable condition.. Vital Signs: 17:03 BP 173 / 88; Pulse 120; Resp 18 S; Temp 98.7(O); Pulse Ox 100% on R/A; Weight 72.57 kg dd6 (R); Height 5 ft. 5 in. (165.10 cm) (R); 19:15 BP 155 / 76; Pulse 88; Resp 20; Temp 98.5(O); Pulse Ox 100% on R/A; Pain 0/10; jmb 17:03 Body Mass Index 26.63 (72.57 kg, 165.10 cm) dd6 Vitals: 17:03 Log In Time: May 24, 2016 at 17:01. dd6 ED Course: 17:03 Patient visited by Darnell Epps PCA. dd6 17:03 Gagan Cortez is Private Physician. dd6 17:03 Patient moved to Waiting dd6 17:04 Patient moved to Pre RCE dd6 17:08 Triage Initiated kc3 17:12 Patient moved to Triage 1 kc3 17:32 [facility] ke 17:32 Patient visited by Poli Scott FNP. ke 17:32 Patient visited by Poli Scott FNP. ke 17:44 Patient moved to I2 / M2 dwg 17:44 [facility] Payment Agreement was scanned into [employer] and attached to record. elia 18:03 Patient visited by Poli Scott FNP. ke 18:15 The patient / caregiver is instructed regarding the plan of care and ED course. carmelina 18:15 BMP Sent. carmelina 18:15 CBC Sent. carmelina 18:15 Inserted saline lock: 20 gauge in left antecubital area and blood collected. The [facility] patient tolerated the procedure well. Labs drawn. (by ED staff). Sent per order to lab. 18:16 Patient visited by Steve Valencia,RN. carmelina 18:24 Patient visited by Hafsa Salas,BOLIVAR. tm5 18:58 Patient visited by Steve Valencia,BOLIVAR. jmb 19:11 Gagan Cortez is Referral Physician. ke 19:15 Discontinued lock intact, bleeding controlled, pressure dressing applied, No carmelina redness/swelling at site. No procedures done that require assistance. 19:24 CT Chest Angio R/O PE Returned. EDMS 05/25 11:46 T-Sheet-- Draft Copy was scanned into [employer] and attached to record. gb Administered Medications: 05/24 17:52 Drug: Albuterol 5 mg [albuterol sulfate 2.5 mg/0.5 mL solution for nebulization (1 mL)] rs5 Route: Nebulizer; 17:52 Drug: Albuterol-Ipratropium 3 ml [ipratropium-albuterol 0.5 mg-3 mg(2.5 mg base)/3 mL rs5 nebulization soln (3 mL)] Route: Inhalation; 18:25 Drug: Solu-MEDROL 125 mg [Solu-Medrol 500 mg intravenous solution (125 mg)] Route: IVP; tm5 Site: left antecubital; 18:25 Drug: NS 0.9% 1000 ml [sodium chloride 0.9 % intravenous solution] Route: IV; Rate: 250 tm5 mL/hr; Site: left antecubital; RT: 18:00 Initial Med Neb Given as ordered Patient was instructed and evaluated on procedure rs5 Patient tolerated procedure well without adverse effect. Respiratory: Respiratory effort is even, unlabored, Respiratory pattern is regular symmetrical, Breath sounds are clear bilaterally. Reports cough that is non-productive Denies pain with respiration, pain with cough. Order Results: Lab Order: CBC; SPEC'M 05/24/16 18:11 Test: WHITE BLOOD COUNT; Value: 7.0; Range: 4.0-10.0; Units: K/mm3; Status: F Test: RED BLOOD COUNT; Value: 4.60; Range: 4.00-5.40; Units: M/mm3; Status: F Test: HEMOGLOBIN; Value: 14.5; Range: 12.0-16.0; Units: g/dl; Status: F Test: HEMATOCRIT; Value: 42.1; Range: 36.0-47.0; Units: %; Status: F Test: MEAN CORPUSCULAR VOLUME; Value: 91.6; Range: 80.0-96.0; Units: fl; Status: F Test: MEAN CORPUSCULAR HEMOGLOBIN; Value: 31.5; Range: 27.0-33.0; Units: pg; Status: F Test: MEAN CORPUSCULAR HGB CONC; Value: 34.3; Range: 32.0-36.5; Units: g/dl; Status: F Test: RED CELL DISTRIBUTION WIDTH; Value: 11.8; Range: 11.5-14.5; Units: %; Status: F Test: PLATELET COUNT, AUTOMATED; Value: 261; Range: 150-450; Units: k/mm3; Status: F [facility] 05/24/16 18:11 Test: GLUCOSE, FASTING; Value: 105; Range: 70-105; Units: MG/DL; Status: F Test: BLOOD UREA NITROGEN; Value: 15; Range: 7-18; Units: MG/DL; Status: F Test: CREATININE FOR GFR; Value: 0.92; Range: 0.55-1.02; Units: MG/DL; Status: F Test: GLOMERULAR FILTRATION RATE; Value: > 60.0; Range: >51; Status: F Test: SODIUM LEVEL; Value: 143; Range: 136-145; Units: MEQ/L; Status: F Test: POTASSIUM SERUM; Value: 3.8; Range: 3.5-5.1; Units: MEQ/L; Status: F Test: CHLORIDE LEVEL; Value: 106; Range: 98-107; Units: MEQ/L; Status: F Test: CARBON DIOXIDE LEVEL; Value: 29; Range: 21-32; Units: MEQ/L; Status: F Test: ANION GAP; Value: 8; Range: 8-16; Units: MEQ/L; Status: F Test: CALCIUM LEVEL; Value: 9.6; Range: 8.5-10.1; Units: MG/DL; Status: F Test Note: ; Units are mL/min/1.73 m2 Chronic Kidney Disease Staging per NKF: Stage I & II GFR >=60 Normal to Mildly Decreased Stage III GFR 30-59 Moderately Decreased Stage IV GFR 15-29 Severely Decreased Stage V GFR <15 Very Little GFR Left ESRD GFR <15 on DIABETES TERRITORY MANAGER Radiology Order: CT Chest Angio R/O PE Test: CT Chest Angio R/O PE REASON FOR EXAMINATION: Shortness of Breath; Clinical: Acute chest pain and shortness of breath.; ; Technique: Axial contrast enhanced images from the thoracic inlet to the upper; abdomen using 100 ml Isovue 370 intravenous contrast material with coronal and; sagittal re-formations.; ; Findings: Satisfactory enhancement of the pulmonary vasculature is achieved and; no filling defects are identified to suggest pulmonary embolus. Thoracic aorta; is normal caliber without aneurysm or dissection. Heart and pericardium are; normal. Bilateral lung claros are well aerated and clear without acute pulmonary; parenchymal consolidation or atelectasis. No nodule or mass lesion. No pleural; effusion/reaction. No pneumothorax. No adenopathy.; ; Impression:; No evidence for pulmonary embolus.; No acute pleuroparenchymal or mediastinal process.; ; ; Signed by; Dieudonne Lowry MD 05/24/2016 07:05 P; Outcome: 19:11 Discharge ordered by Provider. marlys 19:15 Discharge Assessment: Patient awake, alert and oriented x 3. No cognitive and/or jmb functional deficits noted. Patient verbalized understanding of disposition instructions. Patient awake and alert. obeys commands, Oriented to person, place and time. Patient verbalized understanding of disposition instructions. Patient has no functional deficits. patient administered narcotics - no. The following High Risk Discharge criteria are identified: None. Discharged to home ambulatory, with significant other. Condition: stable. Discharge instructions given to patient, Instructed on discharge instructions, follow up and referral plans. Demonstrated understanding of instructions, Pt was receptive of discharge instructions/ teaching. CT Study completed. Property sent home with patient. 19:21 Patient left the ED. carmelina Signatures: Dispatcher [employer] EDMS Tyler Beltran, RN RN Barbara Alex, Reg Reg gb Poli Scott, MANAGER AGRICULTURE MANAGER AGRICULTURE Darnell Cates, SCREED OPERATOR SCREED OPERATOR dd6 Destin Guajardo,RT RT rs5 Min Doty JoshuaRN RN Xiomara Mario,BOLIVAR RN kc3 Hafsa Salas,RN RN tm5 Chart Complete MTDD
--- NOTE | 2016-05-26 20:22 | EDDOCDS ---
Physician Documentation [facility] Name: Lesley Nolen Age: 55 yrs Sex: Female : 1960 Arrival Date: 05/24/2016 Time: 17:02 Bed I2 / M2 Private MD: Gagan Cortez M.D. Disposition: 05/24/16 19:11 Discharged to Home/Self Care. Impression: Acute bronchospasm. - Condition is Stable. - Discharge Instructions: Bronchospasm, Adult, How to Use an Inhaler. - Medication Reconciliation, Local Pharmacy Hours form. - Follow up: Gagan Cortez; When: 1 - 2 days; Reason: Recheck today's complaints, Continuance of care. - Problem is an acute exacerbation. - Symptoms have improved. Historical: - Allergies: Septra; - Home Meds: 1. calcium magnesium and zinc daily 2. multivitamin Oral tab daily 3. pro air inhaler as needed 4. Vitamin D Oral daily 5. prednisone 20 mg Oral tab 2 tabs once daily 6. benzonatate 200 mg oral cap 1 cap 3 times per day 7. loratadine 10 mg Oral tab once daily - PMHx: LBBB; - PSHx: Appendectomy; Tonsillectomy; Adenoidectomy; Colonoscopy; - Social history: Smoking status: Patient states former smoker of tobacco. No barriers to communication noted, The patient speaks fluent Belarusian, Speaks appropriately for age. - Family history: Not pertinent. - : The pt / caregiver states he / she is not on anticoagulants. Home medication list is obtained from the patient. - Exposure Risk Screening:: None identified. 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 5 in. (165.10 cm) (R); 19:15 BP 155 / 76; Pulse 88; Resp 20; Temp 98.5(O); Pulse Ox 100% on R/A; Pain 0/10; jmb 17:03 Body Mass Index 26.63 (72.57 kg, 165.10 cm) dd6 MDM: 17:39 IV Saline Lock ordered. ke 17:39 Solu-MEDROL 125 mg IVP once ordered. ke 17:39 NS 0.9% 1000 ml IV at 250 mL/hr continuous ordered. ke 17:39 Albuterol 5 mg Nebulizer once ordered. ke 17:39 Albuterol-Ipratropium 3 ml Inhalation once ordered. ke 17:39 Call Respiratory ordered. ke 17:40 CT Chest Angio R/O PE Ordered. EDMS 17:40 CBC Ordered. EDMS 17:40 BMP Ordered. EDMS 17:44 Financial registration complete. jpb 17:44 [facility] Payment Agreement was scanned into Ce[employer] and attached to record. jpb 17:49 Call Respiratory complete. jam1 19:06 CBC Reviewed. ke 19:06 BMP Reviewed. 05/25 11:46 T-Sheet-- Draft Copy was scanned into Ce[employer] and attached to record. gb Administered Medications: 05/24 17:52 Drug: Albuterol 5 mg [albuterol sulfate 2.5 mg/0.5 mL solution for nebulization (1 mL)] rs5 Route: Nebulizer; 17:52 Drug: Albuterol-Ipratropium 3 ml [ipratropium-albuterol 0.5 mg-3 mg(2.5 mg base)/3 mL rs5 nebulization soln (3 mL)] Route: Inhalation; 18:25 Drug: Solu-MEDROL 125 mg [Solu-Medrol 500 mg intravenous solution (125 mg)] Route: IVP; tm5 Site: left antecubital; 18:25 Drug: NS 0.9% 1000 ml [sodium chloride 0.9 % intravenous solution] Route: IV; Rate: 250 tm5 mL/hr; Site: left antecubital; Signatures: Dispatcher [employer] EDMS Gilma Egan, CARE CONNECTOR CARE CONNECTOR jam1 Barbara Eid, Reg Reg gb Poli Scott, TITLE EXAMINER TITLE EXAMINER Min Cerna JoshuaRN RN Xiomara Mario RN RN debra3 Destin Guajardo RT rs5 Hafsa Salas RN tm5 The chart was reviewed and I authenticate all verbal orders and agree with the evaluation and treatment provided.Attachments: 17:44 [facility] Payment Agreement [facility] 01/11 11:46 T-Sheet-- Draft Copy gb Chart Complete MTDD
--- NOTE | 2016-05-26 20:22 | EDDOCDS ---
Physician Documentation [facility] Name: Lesley Nolen Age: 55 yrs Sex: Female : 1960 Arrival Date: 05/24/2016 Time: 17:02 Bed I2 / M2 Private MD: Gagan Cortez M.D. Disposition: 05/24/16 19:11 Discharged to Home/Self Care. Impression: Acute bronchospasm. - Condition is Stable. - Discharge Instructions: Bronchospasm, Adult, How to Use an Inhaler. - Medication Reconciliation, Local Pharmacy Hours form. - Follow up: Gagan Cortez; When: 1 - 2 days; Reason: Recheck today's complaints, Continuance of care. - Problem is an acute exacerbation. - Symptoms have improved. Historical: - Allergies: Septra; - Home Meds: 1. calcium magnesium and zinc daily 2. multivitamin Oral tab daily 3. pro air inhaler as needed 4. Vitamin D Oral daily 5. prednisone 20 mg Oral tab 2 tabs once daily 6. benzonatate 200 mg oral cap 1 cap 3 times per day 7. loratadine 10 mg Oral tab once daily - PMHx: LBBB; - PSHx: Appendectomy; Tonsillectomy; Adenoidectomy; Colonoscopy; - Social history: Smoking status: Patient states former smoker of tobacco. No barriers to communication noted, The patient speaks fluent Icelandic, Speaks appropriately for age. - Family history: Not pertinent. - : The pt / caregiver states he / she is not on anticoagulants. Home medication list is obtained from the patient. - Exposure Risk Screening:: None identified. 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 5 in. (165.10 cm) (R); 19:15 BP 155 / 76; Pulse 88; Resp 20; Temp 98.5(O); Pulse Ox 100% on R/A; Pain 0/10; jmb 17:03 Body Mass Index 26.63 (72.57 kg, 165.10 cm) dd6 MDM: 17:39 IV Saline Lock ordered. ke 17:39 Solu-MEDROL 125 mg IVP once ordered. ke 17:39 NS 0.9% 1000 ml IV at 250 mL/hr continuous ordered. ke 17:39 Albuterol 5 mg Nebulizer once ordered. ke 17:39 Albuterol-Ipratropium 3 ml Inhalation once ordered. ke 17:39 Call Respiratory ordered. ke 17:40 CT Chest Angio R/O PE Ordered. EDMS 17:40 CBC Ordered. EDMS 17:40 BMP Ordered. EDMS 17:44 Financial registration complete. jpb 17:44 [facility] Payment Agreement was scanned into [employer] and attached to record. jpb 17:49 Call Respiratory complete. jam1 19:06 CBC Reviewed. ke 19:06 BMP Reviewed. 05/25 11:46 T-Sheet-- Draft Copy was scanned into [employer] and attached to record. gb Administered Medications: 05/24 17:52 Drug: Albuterol 5 mg [albuterol sulfate 2.5 mg/0.5 mL solution for nebulization (1 mL)] rs5 Route: Nebulizer; 17:52 Drug: Albuterol-Ipratropium 3 ml [ipratropium-albuterol 0.5 mg-3 mg(2.5 mg base)/3 mL rs5 nebulization soln (3 mL)] Route: Inhalation; 18:25 Drug: Solu-MEDROL 125 mg [Solu-Medrol 500 mg intravenous solution (125 mg)] Route: IVP; tm5 Site: left antecubital; 18:25 Drug: NS 0.9% 1000 ml [sodium chloride 0.9 % intravenous solution] Route: IV; Rate: 250 tm5 mL/hr; Site: left antecubital; Signatures: Dispatcher [employer] EDMS Gilma Egan, CCNP CCNP jam1 Barbara Eid, Reg Reg gb Poli Scott, FELT CARBONIZER FELT CARBONIZER Min Cerna JoshuaRN RN Xiomara Mario RN RN debra3 Destin Guajardo RT rs5 Hafsa Salas RN tm5 The chart was reviewed and I authenticate all verbal orders and agree with the evaluation and treatment provided.Attachments: 17:44 [facility] Payment Agreement [facility] 01/11 11:46 T-Sheet-- Draft Copy gb Chart Complete MTDD
== END 2016-05-24 19:21 | disposition home or self-care (01) ==
LOC: M ED 17:02
DX: J98.01 Acute bronchospasm (principal); I44.7 Left bundle-branch block, unspecified; Z87.891 Personal history of nicotine dependence; Z79.51 Long term (current) use of inhaled steroids; Z79.52 Long term (current) use of systemic steroids; Z79.899 Other long term (current) drug therapy; Z88.1 Allergy status to other antibiotic agents
CPT/HCPCS: 36415; 71275; 80048; 85027; 94640; 96374; 99284; J2930; Q9967

== ENCOUNTER → 2016-12-02 | Outpatient (CLI) | payer OTHER ==
--- NOTE | 2016-12-02 15:39 | REP ---
Right hip two views : There is no fracture or dislocation. Mineralization and joint spaces are normal. There are no calcifications or foreign bodies. Impression: Negative right hip. There is no change from a prior study dated 03/05/2008. If there is clinical concern for avascular necrosis consider MRI. . Signed by Tyler Leija MD 12/02/2016 03:31 P
== END ==
LOC: M WUC 15:03
PROVIDERS: ATTEND Physician Assistant
DX: R30.0 Dysuria (principal); M25.551 Pain in right hip

== ENCOUNTER → 2021-06-24 | Outpatient (REF) | payer OTHER | LOC: M LAB REF 09:21 | PROVIDERS: ATTEND Physician Assistant | DX: R30.0 Dysuria (principal) ==

== ENCOUNTER → 2021-10-31 | Outpatient (CLI) | payer OTHER ==
[~2021-10-31] MED LIST: CENTCHW4 PO; CVS-277 PO; PHEN-501; VITA100054 PO
== END ==
LOC: M LABSMTC 08-31 10:42
PROVIDERS: ATTEND Anesthesiology
DX: Z01.812 Encounter for preprocedural laboratory examination (principal); Z20.822 Contact with and (suspected) exposure to COVID-19

== ENCOUNTER 2021-11-04 07:55 | Day surgery (SDC) | payer OTHER ==
[~2021-11-04] VITALS: Ht 167.6 cm; Wt 79.3 kg
[~2021-11-04 07:55] MED LIST changes: +LIDOCAINE 2% 100MG/5ML SDV (FOR ANES.) As Ordered ONE; +NS 1,000 ML IV ONE; +propofoL 200 MG/20 ML VIAL As Ordered ONE
[2021-11-04] MEDS ORDERED: LABETALOL 100MG/20ML VIAL As Ordered ONE (09:33)
[2021-11-04 10:05] VITALS: BP 147/73
== END 2021-11-04 10:18 | disposition home or self-care (01) ==
LOC: M OPP 07:55
PROVIDERS: ATTEND Surgery
DX: Z12.11 Encounter for screening for malignant neoplasm of colon (principal); Z88.1 Allergy status to other antibiotic agents; Z88.2 Allergy status to sulfonamides

== ENCOUNTER → 2022-01-24 | Outpatient (REF) | payer OTHER ==
[~2022-01-24] MED LIST changes: -LIDOCAINE 2% 100MG/5ML SDV (FOR ANES.) As Ordered ONE; -NS 1,000 ML IV ONE; -propofoL 200 MG/20 ML VIAL As Ordered ONE
[2022-01-24 19:54] LABS: % LABILE ALKALINE PHOSPHATASE 53.3 %
== END ==
LOC: M LAB REF 16:36
PROVIDERS: ATTEND Family Medicine
DX: R74.8 Abnormal levels of other serum enzymes (principal)

== ENCOUNTER → 2022-11-16 | Outpatient (REF) | payer OTHER | LOC: M LAB REF 22:11 | PROVIDERS: ATTEND Nurse Practitioner Family | DX: R30.0 Dysuria (principal) ==

== ENCOUNTER → 2023-03-01 | Outpatient (REF) | payer OTHER | LOC: M SFHCWAGY 13:07 | PROVIDERS: ATTEND Nurse Practitioner Family | DX: N73.9 Female pelvic inflammatory disease, unspecified (principal); Z12.4 Encounter for screening for malignant neoplasm of cervix | CPT/HCPCS: 87070; 87624; G0123 ==

== ENCOUNTER → 2023-08-09 | Outpatient (CLI) | payer OTHER | LOC: M WHC 07:38 | PROVIDERS: ATTEND Family Medicine | DX: Z12.31 Encounter for screening mammogram for malignant neoplasm of breast (principal); M85.89 Other specified disorders of bone density and structure, multiple sites; M81.0 Age-related osteoporosis without current pathological fracture ==

== ENCOUNTER → 2025-04-02 | Outpatient (CLI) | payer OTHER ==
[~2025-04-02] MED LIST changes: +CHOL25CA2 PO; -VITA100054 PO
== END ==
LOC: M WHC 09:54
PROVIDERS: ATTEND Family Medicine
DX: Z12.31 Encounter for screening mammogram for malignant neoplasm of breast (principal); R92.313 Mammographic fatty tissue density, bilateral breasts